=== PATIENT | female | born 1960 | race African-American/Black ===

== ENCOUNTER 2019-12-16 10:32 | Inpatient (IN) | payer MEDICAID, OTHER ==
[~2019-12-16] VITALS: Ht 162.6 cm; Wt 112.5 kg
[2019-12-16] VITALS (8 sets, daily range): BP systolic 118–154; BP diastolic 67–84
[~2019-12-16 10:32] MED LIST: ALPR3TAB; HYDR25TA4; LISI40TA11; OME40GT; proair
[2019-12-16] MEDS ORDERED: ASPirin 81 mg TAB PO ONE (10:45)
[2019-12-16 11:03] LABS: Basophils # (auto) 0 10 ^3/uL (0-0.2); Basophils % (auto) 0.4 % (0.0-2.0); Eosinophils # (auto) 0.2 10 ^3/uL (0-0.8); Hematocrit 44.4 % (36.0-46.0); Hemoglobin 14.7 g/dL (12.2-16.2); Lymphocytes # (auto) 4.9 10 ^3/uL (0.4-5.4); Lymphocytes % (auto) 42.6 % (10.0-50.0); Mean Corpuscular Hemoglobin 28.3 pg (28.0-32.0); Mean Corpuscular Hgb Conc. 33.1 g/dL (32.0-36.0); Mean Corpuscular Volume 85.6 fL (80.0-100.0); Monocytes # (auto) 0.9 10 ^3/uL (0-1.3); Monocytes % (auto) 7.5 % (0.0-12.0); Neutrophils # (auto) 5.4 10 ^3/uL (1.6-8.6); Neutrophils % (auto) 47.5 % (37.0-80.0); Nucleated Red Blood Cells % 0.1 %; Platelet Count (auto) 190 10^3/uL (140-450); Red Blood Cells 5.19 10^6/uL (4.0-5.20); Red Cell Distribution Width 14.9 % (11.8-14.3); White Blood Cell 11.4 10^3/uL (4.4-10.8)
[2019-12-16 11:22] LABS: Albumin 3.4 g/dL (3.4-5.0); Anion Gap 9 (5-15); Blood Urea Nitrogen 8 mg/dL (7-18); Calcium 8.9 mg/dL (8.5-10.1); Carbon Dioxide 26 mmol/L (21-32); Chloride 103 mmol/L (98-107); Glucose 98 mg/dL (74-106); Potassium 3.8 mmol/L (3.5-5.1); Sodium 138 mmol/L (136-145)
[2019-12-16 11:27] LABS: Alanine Aminotransferase 19 U/L (13-56); Alkaline Phosphatase 74 U/L (45-117); Aspartate Aminotransferase 17 U/L (15-37); BUN/Creatinine Ratio 9.2; Bilirubin, Total 0.4 mg/dL (0.2-1.0); GFR African American 85 mL/min; GFR Non-African American 70 mL/min; Total Protein 8.7 g/dL (6.4-8.2)
[2019-12-16] MEDS ORDERED: MORPHINE SULF INJ 2 MG/ML SYRINGE 1ML IV PRN ×2 (13:00)
[2019-12-16] MEDS ORDERED: ACETAMINOPHEN 500 MG TAB PO PRN (13:00)
[2019-12-16] MEDS ORDERED: ONDANSETRON HCL 4 MG/2 ML VIAL IV PRN (13:00)
[2019-12-16] MEDS ORDERED: hydrALAZINE HCL 20 MG/ML VL IV PRN (13:00)
[2019-12-16] MEDS ORDERED: HYDROcodone-ACET 5/325MG TAB PO PRN (13:00)
[2019-12-16] MEDS: NITROGLYCERIN 0.4 MG SL TAB SL PRN ×5 (14:23→20:07)
[2019-12-16] MEDS: ALPRAZolam 0.25 MG TAB PO SCH ×2 (14:35→21:06)
[2019-12-16] MEDS ORDERED: ASPI81CH43 PO (17:42)
[2019-12-16] MEDS ORDERED: MECL25TA18 PO (17:42)
[2019-12-16] MEDS ORDERED: HYDR-531 PO (17:42)
[2019-12-16] MEDS ORDERED: AMLO10TA13 PO (17:42)
[2019-12-16] MEDS ORDERED: ALPR0.25 PO (17:42)
[2019-12-16 18:45] LABS: Magnesium 2.2 mg/dL (1.6-2.6)
--- NOTE | 2019-12-16 19:30 | NUR ---
Opening Shift Note Assumed care of patient, awake and alert. No S/S of distress/SOB or pain. Insructed on POC and to callfor assist PRN, will continue to monitor for changes Q1hr and PRN. Fall and safety precautions in place. Call light within reach.
[2019-12-16] MEDS: HYDROcodone-ACET 10/325MG TAB PO PRN ×2 (19:41→22:40)
--- NOTE | 2019-12-16 19:57 | NUR ---
CHEST PAIN Patient complaining of chest pain; 04/12. Vitals taken; BP 154/84, HR 91, O2 99% on RA. First dose of Nitro given. Addendum: 12/16/19 at 2339 by Linh Adair RN RN 1956; Before first dose of Nitro given, EKG done, showing "Sinus Rhythm, 75 HR." 2001; Patient states chest pain has not subsided, still 04/12. Vitals taken; BP 120/76, HR 97, O2 97% on RA. Second dose of Nitro given. 2006; Patient states chest pain has not subsided, still 810. Vitals taken; BP 128/76, HR 100, O2 95% on RA. Third dose of Nitro given. 2011; Patient states chest pain has not subsided, currently 7/10. Vitals taken; BP 118/67, HR 103, O2 97% on RA. Will administer Morphine per protocol. 2020; Patient still states chest pain 03/12. Vitals taken; BP 133/74, HR 85, O2 97% on RA. Morphine administered. 2050; Patient states chest pain had subsided with Morphine administration, complaining of back pain level 5/10. Vitals taken; BP 145/76, HR 65. EKG taken down to hospitalist on-call, Dr. Mitchell. Informed him of chest pain complaint and interventions done. Informed him cardiology on board and patient pending procedures tomorrow 12/16. No new orders received from Dr. Mitchell. EKG signed and placed in chart. Patient in no physical or respiratory distress since first chest pain complaint and during interventions, and denied SOB during this time. See EMAR for all medication administration and vital signs documentation Will continue to monitor
[2019-12-16] MEDS: METOPROLOL TARTRATE 25 MG TAB PO SCH (21:06)
[2019-12-16] MEDS: ATORVASTATIN 20 MG TAB PO SCH ×2 (21:06→21:42)
[2019-12-17] MEDS ORDERED: BECL80AE11 IN (03:16)
--- NOTE | 2019-12-17 05:00 | NUR ---
EKG EKG done per MD order and placed in chart. EKG showing "sinus rhyth, HR 64."
[2019-12-17] MEDS: ALPRAZolam 0.25 MG TAB PO SCH ×3 (05:03→21:27)
[2019-12-17 05:16] VITALS: BP 110/63
[2019-12-17 05:59] LABS: Basophils # (auto) 0 10 ^3/uL (0-0.2); Basophils % (auto) 0.4 % (0.0-2.0); Eosinophils # (auto) 0.2 10 ^3/uL (0-0.8); Hematocrit 41.4 % (36.0-46.0); Lymphocytes # (auto) 3.6 10 ^3/uL (0.4-5.4); Mean Corpuscular Hemoglobin 28.7 pg (28.0-32.0); Mean Corpuscular Hgb Conc. 33.7 g/dL (32.0-36.0); Monocytes # (auto) 0.8 10 ^3/uL (0-1.3); Monocytes % (auto) 9.5 % (0.0-12.0); Neutrophils # (auto) 3.6 10 ^3/uL (1.6-8.6); Neutrophils % (auto) 43.1 % (37.0-80.0); Nucleated Red Blood Cells % 0.1 %; Platelet Count (auto) 173 10^3/uL (140-450); Red Blood Cells 4.88 10^6/uL (4.0-5.20); Red Cell Distribution Width 14.8 % (11.8-14.3); White Blood Cell 8.3 10^3/uL (4.4-10.8)
[2019-12-17 06:20] LABS: Potassium 3.9 mmol/L (3.5-5.1)
[2019-12-17 06:30] LABS: BUN/Creatinine Ratio 14.8; Calcium 8.6 mg/dL (8.5-10.1)
[2019-12-17] MEDS ORDERED: ADENOSINE 94 MG in GIVE UN-DILUTED 0 ML IV STA (08:07)
--- NOTE | 2019-12-17 08:10 | NUR ---
Patient taken down for stress test. No distress noted or sob. Cont care
[2019-12-17 09:00] VITALS: BP 123/70
[2019-12-17] MEDS: ASPirin-EC 81 mg tab PO SCH (09:49)
[2019-12-17] MEDS: METOPROLOL TARTRATE 25 MG TAB PO SCH ×2 (09:49→21:28)
[2019-12-17] MEDS: FAMOTIDINE 20 MG TAB PO SCH (09:50)
[2019-12-17] MEDS: LISINOPRIL 10 MG TAB PO SCH (09:51)
[2019-12-17] MEDS: HYDROcodone-ACET 10/325MG TAB PO PRN ×2 (09:58→21:27)
[2019-12-17 13:00] VITALS: BP 136/75
--- NOTE | 2019-12-17 14:00 | NUR ---
Dr Cedillo aware of patient. Dr cedillo aware of patient status. No new orders at this time. Will continue to monitor pt.
--- NOTE | 2019-12-17 15:28 | NUR ---
STRESS TEST: NUCLEAR STRESS TEST COMPLETED ON 12/17/2019.
[2019-12-17 16:47] VITALS: BP 126/74
--- NOTE | 2019-12-17 19:00 | NUR ---
Patient care endorsed endorsed care to Melissa rn. Patient laying in bed comfortably in no distress or sob noted. Call light within reach.
--- NOTE | 2019-12-17 19:15 | NUR ---
Opening Shift Note Received report from keerthi Barrett RN. Assumed care of patient, awake and alert. No S/S of distress/SOB or pain. Instructed on POC and to call for assist PRN, will continue to monitor for changes Q1hr and PRN. Fall and safety precautions in place. Call light within reach.
[2019-12-17] MEDS: ATORVASTATIN 20 MG TAB PO SCH (21:28)
[2019-12-17 21:46] VITALS: BP 139/77
[2019-12-18 05:00] VITALS: BP 120/66
[2019-12-18] MEDS: ALPRAZolam 0.25 MG TAB PO SCH ×3 (05:58→21:48)
[2019-12-18 09:00] VITALS: BP 135/72
--- NOTE | 2019-12-18 09:17 | NUR ---
Alissa GALE AT BEDSIDE.
[2019-12-18] MEDS: METOPROLOL TARTRATE 25 MG TAB PO SCH ×2 (09:39→21:48)
[2019-12-18] MEDS: ASPirin-EC 81 mg tab PO SCH (09:39)
[2019-12-18] MEDS: LISINOPRIL 10 MG TAB PO SCH (09:40)
[2019-12-18] MEDS: FAMOTIDINE 20 MG TAB PO SCH (09:40)
--- NOTE | 2019-12-18 09:48 | NUR ---
INFORMED Alissa GALE THAT PATIENTS HEART RATE IS TOO LOW TO GIVE METOPROLOL. STATED SHE WOULD ADJUST MEDICATION.
[2019-12-18] MEDS: HYDROcodone-ACET 10/325MG TAB PO PRN ×2 (10:35→21:49)
--- NOTE | 2019-12-18 11:25 | NUR ---
Luiz BABCOCK AT BEDSIDE.
[2019-12-18 13:00] VITALS: BP 136/67
[2019-12-18 17:00] VITALS: BP 124/64
[2019-12-18] MEDS: ATORVASTATIN 20 MG TAB PO SCH (21:49)
[2019-12-18 22:16] VITALS: BP 127/69
[2019-12-19] MEDS ORDERED: SODIUM CHLORIDE 0.9% 1,000 ML IV SCH (00:01)
--- NOTE | 2019-12-19 00:12 | NUR ---
REMINDED PATIENT ON [id number] STATUS. PATIENT VERBALIZED UNDERSTANDING
[2019-12-19 05:14] VITALS: BP 111/63
[2019-12-19] MEDS: ALPRAZolam 0.25 MG TAB PO SCH ×2 (05:48→14:58)
--- NOTE | 2019-12-19 06:00 | NUR ---
IV FLUIDS STARTED IV FLUIDS AT A RATE OF 112ML/HOUR.
[2019-12-19 06:23] LABS: Basophils # (auto) 0.1 10 ^3/uL (0-0.2); Basophils % (auto) 0.5 % (0.0-2.0); Eosinophils # (auto) 0.2 10 ^3/uL (0-0.8); Eosinophils % (auto) 2.4 % (0.0-7.0); Hematocrit 44.9 % (36.0-46.0); Hemoglobin 15.1 g/dL (12.2-16.2); Lymphocytes # (auto) 4.2 10 ^3/uL (0.4-5.4); Mean Corpuscular Hemoglobin 28.6 pg (28.0-32.0); Mean Corpuscular Hgb Conc. 33.6 g/dL (32.0-36.0); Mean Corpuscular Volume 85.3 fL (80.0-100.0); Monocytes # (auto) 0.8 10 ^3/uL (0-1.3); Monocytes % (auto) 8.4 % (0.0-12.0); Neutrophils # (auto) 4.3 10 ^3/uL (1.6-8.6); Neutrophils % (auto) 44.7 % (37.0-80.0); Nucleated Red Blood Cells % 0.2 %; Platelet Count (auto) 186 10^3/uL (140-450); Red Blood Cells 5.27 10^6/uL (4.0-5.20); Red Cell Distribution Width 14.7 % (11.8-14.3); White Blood Cell 9.6 10^3/uL (4.4-10.8)
[2019-12-19 06:38] LABS: INR 1.07 (0.9-1.15); Partial Thromboplastin Time 28.4 sec (23.64-32.05)
[2019-12-19 06:39] LABS: Calcium 9.2 mg/dL (8.5-10.1); Potassium 4.1 mmol/L (3.5-5.1)
[2019-12-19 06:42] LABS: BUN/Creatinine Ratio 16.1
--- NOTE | 2019-12-19 08:00 | NUR ---
Opening Shift Note Assumed care of patient, awake, alert, and oriented. No S/S of distress/SOB or pain. Bed in lowest/locked position, bed rails up x2, call light within reach. Instructed on POC and to call for assist PRN. Will continue to monitor for changes Q1hr and PRN.
--- NOTE | 2019-12-19 08:15 | NUR ---
OFF UNIT PATIENT DOWN TO RIGGING LOFT REPAIRER FOR PROCEDURE
[2019-12-19] MEDS ORDERED: LIDOCAINE 2%HCL (LOCAL ANESTH.) INJ 20ML MDV ONE (08:24)
[2019-12-19] MEDS ORDERED: IOHEXOL 350 MG/ML 100ML IJ ONE (08:24)
[2019-12-19] MEDS ORDERED: fentaNYL CITRATE 100 MCG/2 ML VL ONE (08:39)
[2019-12-19] MEDS ORDERED: ANGIOMAX 250 MG VIAL IV ONE (08:39)
[2019-12-19] MEDS ORDERED: SODIUM CHL 0.9% 0 ML ONE (08:40)
[2019-12-19] MEDS ORDERED: MIDAZOLAM HCL 1MG/1ML-2 ML VIAL ONE (08:40)
[2019-12-19] MEDS ORDERED: NITROGLYCERIN 5MG/ML 10ML VIAL IV ONE (08:41)
[2019-12-19] MEDS ORDERED: VERAPAMIL 2.5MG/ML INJ 2ML VIAL IV ONE (08:46)
[2019-12-19] MEDS ORDERED: HEPARIN SODIUM (PORCINE) 5000 UNITS/ML 1ML VIAL ONE (08:46)
[2019-12-19 09:00] VITALS: BP 131/78
[2019-12-19] MEDS ORDERED: diphenhdrAMINE HCL 50 MG/1 ML VL ONE (09:18)
[2019-12-19] MEDS ORDERED: LISINOPRIL 20 MG TAB PO SCH (10:00)
--- NOTE | 2019-12-19 10:23 | NUR ---
ON UNIT PATIENT RETURNED TO ROOM FROM ANDROID PLATFORM DEVELOPER. VASC BAND TO RIGHT WRIST. NO BLEEDING. WILL REMOVE PER MD ORDERS
[2019-12-19] MEDS: ASPirin-EC 81 mg tab PO SCH (11:12)
[2019-12-19] MEDS: METOPROLOL TARTRATE 25 MG TAB PO SCH (11:13)
[2019-12-19] MEDS: FAMOTIDINE 20 MG TAB PO SCH (11:13)
[2019-12-19] MEDS ORDERED: ATOR20TA50 PO (11:42)
[2019-12-19 13:00] VITALS: BP 142/68
--- NOTE | 2019-12-19 13:23 | NUR ---
VASC BAND VASC BAND REMOVED. NO BLEEDING NOTED. PRESSURE DRESSING PLACED. PATIENT TOLERATED WELL
--- NOTE | 2019-12-19 16:27 | NUR ---
Discharge instructions given as ordered. Encourage to follow up with PMD as instructed. All questions and concerns addressed. Patient verbalized understanding. IV removed with catheter intact, pressure dressing applied. Telemetry unit returned to ICU. Patient taken to vehicle via wheelchair with all personal belongings, accompanied by staff and family member. No distress noted at time of departure.
== END 2019-12-19 16:26 | disposition home or self-care (01) | DRG 192 ==
LOC: ER 10:32 → TELE 10:33 → TELE-CENTR 14:06
PROVIDERS: ADMIT Nurse Practitioner Acute Care; ATTEND Internal Medicine
PROC: 4A023N7 Measurement of Cardiac Sampling and Pressure, Left Heart, Percutaneous Approach (ICD-10-PCS; principal; 2019-12-19)
PROC: B2111ZZ Fluoroscopy of Multiple Coronary Arteries using Low Osmolar Contrast (ICD-10-PCS; 2019-12-19)
PROC: B2151ZZ Fluoroscopy of Left Heart using Low Osmolar Contrast (ICD-10-PCS; 2019-12-19)
DX: R07.89 Other chest pain (principal); I50.43 Acute on chronic combined systolic (congestive) and diastolic (congestive) heart failure; R65.10 Systemic inflammatory response syndrome (SIRS) of non-infectious origin without acute organ dysfunction; E66.01 Morbid (severe) obesity due to excess calories; Z68.41 Body mass index [BMI] 40.0-44.9, adult; I11.0 Hypertensive heart disease with heart failure; D72.829 Elevated white blood cell count, unspecified; E11.9 Type 2 diabetes mellitus without complications; E78.5 Hyperlipidemia, unspecified; F41.9 Anxiety disorder, unspecified; J45.909 Unspecified asthma, uncomplicated; G89.29 Other chronic pain; M54.9 Dorsalgia, unspecified; Z80.9 Family history of malignant neoplasm, unspecified; Z82.49 Family history of ischemic heart disease and other diseases of the circulatory system; Z90.710 Acquired absence of both cervix and uterus; Z83.3 Family history of diabetes mellitus; Z90.49 Acquired absence of other specified parts of digestive tract
CPT/HCPCS: 36415; 71046; 78452; 80048; 80053; 80061; 83036; 83735; 83880; 84443; 84484; 85025; 85379; 85610; 85730; 86141; 93005; 93017; 93306; 93458; 99152; G0378; J0153; J2250; J3490